=== PATIENT | female | born 1985 | race Native Hawaiian/Other Pacific Islander ===

== ENCOUNTER 2020-02-01 09:47 | Emergency (ER) | payer OTHER ==
[~2020-02-01] VITALS: Ht 154.9 cm; Wt 68.0 kg
[2020-02-01 09:56] VITALS: TEMP 99.1
[2020-02-01 10:25] VITALS: BP 130/77
== END 2020-02-01 10:27 | disposition home or self-care (01) ==
LOC: ED 09:47
DX: K29.60 Other gastritis without bleeding (principal); R51 Headache; R11.2 Nausea with vomiting, unspecified
CPT/HCPCS: 99281

== ENCOUNTER 2020-02-01 11:15 | Emergency (ER) | payer OTHER ==
[~2020-02-01] VITALS: Ht 154.9 cm; Wt 68.0 kg
[2020-02-01 11:15] VITALS: TEMP 99.6
[2020-02-01 11:46] LABS: PLATELET COUNT 248 K/uL (152-353)
[2020-02-01 11:54] LABS: POTASSIUM 3.9 mmol/L (3.6-5.2)
[2020-02-01 13:30] VITALS: BP 123/78
== END 2020-02-01 13:38 | disposition home or self-care (01) ==
LOC: ED 11:22
PROVIDERS: Family Medicine
DX: K29.70 Gastritis, unspecified, without bleeding (principal); R51 Headache; R11.2 Nausea with vomiting, unspecified
CPT/HCPCS: 36415; 80053; 81000; 81025; 82150; 82272; 83690; 85027; 99283